=== PATIENT | female | born 1980 | race Caucasian/White ===

== ENCOUNTER 2020-10-25 07:03 | Outpatient (CLI) | payer OTHER, SELFPAY ==
--- NOTE | 2020-10-25 07:30 | XR_ITS ---
WS: [id number] ABDOMEN: SUPINE FILM HISTORY: URETERAL STONE COMPARISON: 06/09/2019 Normal bowel gas pattern. Normal osseous structures. Numerous calcifications are present in the true pelvis. No change in appearance of these calcifications which could be phleboliths. Distal ureteral c alcifications may appear similar. Right kidney: No renal or ureteral stone identified. Left kidney: No renal or ureteral stone identified. XR/XR KUB [id number] IMPRESSION: 1. No renal calcifications. 2. Numerous calcifications in the pelvis bilaterally are probably phleboliths. Distal ureteral calcifications may appear similar.
== END 2020-10-25 07:04 | disposition home or self-care (01) ==
PROVIDERS: PCP Family Medicine; Visit Provider Urology
DX: N20.1 Calculus of ureter (principal)
CPT/HCPCS: 74018; 81003

== ENCOUNTER 2022-01-03 07:12 | Outpatient (CLI) | payer OTHER, SELFPAY ==
--- NOTE | 2022-01-03 07:15 | XRR_ITS ---
PROCEDURE INFORMATION: Exam: XR Abdomen Exam date and time: 01/03/2022 7:14 AM Age: 41 years old Clinical indication: Condition or disease; Kidney or ureter condition; Calculus (stone) in ureter; Patient HX: Follow up; Additional info: Urolithiasis, kub TECHNIQUE: Imaging protocol: XR of the abdomen. Views: Frontal supine view of the abdomen. 1 View. COMPARISON: CR XR KUB [id number] 10/25/2020 7:16 AM FINDINGS: Gastrointestinal tract: Normal. No bowel dilation. Vasculature: Probable calcified phleboliths over the pelvis, similar to prior exam. 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 XR/XR KUB [id number] IMPRESSION: No acute findings or findings of urinary calculi.
== END 2022-01-03 07:13 | disposition home or self-care (01) ==
LOC: RAD 07:13
PROVIDERS: PCP Family Medicine; Visit Provider Urology
DX: N20.9 Urinary calculus, unspecified (principal); M16.0 Bilateral primary osteoarthritis of hip
CPT/HCPCS: 74018; 81003

== ENCOUNTER 2022-07-02 07:22 | Outpatient (CLI) | payer OTHER, SELFPAY ==
--- NOTE | 2022-07-02 07:37 | XR_ITS ---
WS: [id number] Exam: XR KUB [id number] Date/Time of Exam: 07/02/2022 7:37 AM Reason For Exam: Urolithiasis Comparison 01/03/2022. No sign of bowel obstruction or free air. No sign of organ enlargement. Bony structures are intact. N onspecific pelvic calcifications are noted. XR/XR KUB [id number] IMPRESSION: 1. No acute abdominal process.
== END 2022-07-02 07:23 | disposition home or self-care (01) ==
LOC: RAD 07:24
PROVIDERS: PCP Family Medicine; Visit Provider Urology
DX: N20.9 Urinary calculus, unspecified (principal)
CPT/HCPCS: 74018; 81003

== ENCOUNTER 2024-08-24 02:50 | Emergency (ER) | payer OTHER, SELFPAY ==
[2024-08-24] VITALS (51 sets, daily range): BP systolic 116–168; BP diastolic 76–114; PULSE 57–87; RESP 15–17; TEMP 36.7; O2SAT 93–99; BMI 32.3
[2024-08-24 03:24] LABS: Bilirubin Urine Negative (Negative); Blood Urine 2+ (Negative); Glucose Urine UA Negative (Normal); Ketones Urine Negative (Negative); Leukocyte Esterase Urine Negative (Negative); Nitrate Urine Negative (Negative); Protein Urine Negative (Negative); Specific Gravity, Urine 1.013 (1.005-1.030); Urine Appearance Clear (CLEAR); Urine Color Yellow (Yellow); pH Urine 6.5 (5-7)
[2024-08-24 03:29] LABS: Bacteria Urine None Seen /hpf; Hyaline Casts Urine 0-4 /lpf; RBC Urine 0-2 /hpf (0-2); Squamous Epithelial Cell Urine 0-5 /hpf (0-5); WBC Urine 0-5 /hpf (0-5)
[2024-08-24 03:31] LABS: Basophils # 0.1 10^3/uL (0.0-0.1); Basophils % 1.2 %; Eosinophils # 0.3 10^3/uL (0.0-0.8); Eosinophils % 4.2 %; Lymphocytes # 2.2 10^3/uL (0.8-4.8); Lymphocytes % 33.7 %; Mean Corpuscular HGB Conc 33.7 g/dL (30-55); Mean Corpuscular Hemoglobin 27.7 pg (27-33); Mean Corpuscular Volume 82.2 fl (85-98); Mean Platelet Volume 10.3 fL (7.4-10.4); Monocytes # 0.7 10^3/uL (0.2-0.9); Monocytes % 10.7 %; Neutrophils % 49.9 %; Nucleated Red Blood Cells % 0 %; Platelet Count 299 10^3/cmm (157-399); Red Blood Count 4.99 10^6/uL (3.85-5.65); Red Cell Distribution Width 14.1 % (12.1-15.1); White Blood Count 6.43 10^3/uL (3.29-11.43)
--- NOTE | 2024-08-24 03:41 | CTR_ITS ---
PROCEDURE INFORMATION: Exam: CT Abdomen And Pelvis With Contrast Exam date and time: 08/24/2024 4:01 AM Age: 43 years old Clinical indication: Nausea and vomiting; Additional info: Abdominal pain TECHNIQUE: Imaging protocol: Computed tomography of the abdomen and pelvis with contrast. Radiation optimization: All CT scans at this facility use at least one of these dose optimization techniques: automated exposure control; mA and/or kV adjustment per patient size (includes targeted exams where dose is matched to clinical indication); or iterative reconstruction. Contrast material: OMNI 350; Contrast volume: 100 ml; Contrast route: INTRAVENOUS (IV); COMPARISON: CT kidney stone 05/27/2019 11:41 AM RADIATION DOSE METRICS: Total DLP (mGy-cm): 834.83 FINDINGS: Slightly delayed right renal parenchymal enhancement as compared to the left. There is minimal fullness of right renal collecting system and ureter secondary to a 2-3 mm right ureteral stone immediately proximal to the right UVJ. No acute abnormality of the liver, spleen, pancreas, adrenal glands, or left kidney is identified. There is a nonobstructing 3-4 mm stone in the left kidney towards the upper pole. Probable tiny left renal cyst measuring 5 mm, too small to characterize with certainty. Abdominal aorta has normal caliber. SMV, splenic vein, and portal vein are patent. No evidence of acute appendicitis or acute adnexal pathology. 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 No acute osseous abnormality identified. CT/CT abdomen pelvis w con* [id number] IMPRESSION: 1. There is a 2-3 mm stone just proximal to the right UVJ, producing very subtle right hydroureteronephrosis. 2. There is a nonobstructing 3-4 mm stone towards the upper pole of the left kidney. Other incidental/nonacute findings as reported above. COMMENTS: Consistent with the [employer]'s Incidental Findings Committee white paper (J Am Mayito Radiol 2018): Any incidental renal lesion less than 1 cm or classified as too small to characterize, or any incidental cystic renal lesion characterized as simple-appearing, is likely benign. No follow-up imaging is recommended for these lesions per consensus recommendations based on imaging criteria.
--- NOTE | 2024-08-24 03:45 | W.ED.ABDPA2 ---
Documented by User: Cata Alejandro MD 08/24/24 03:50 HPI - Abdominal Pain General: Chief Complaint: Abdominal Pain Stated Complaint: Rt ABD Pain Time Seen by Provider: 08/24/24 02:54 History of Present Illness: 43-year-old woman who presents emergency room with right lower lateral abdominal pain. She describes a sharp pain internally. No nausea or vomiting. She has had kidney stones in the past and says this feels different. She said it woke her up tonight a couple of hours ago. No dysuria. No fever. No chest pain. No shortness of breath. Related Data Date of Last Menstrual Period: 08/24/24 Home Medications Medication Instructions Recorded Confirmed Thrive For Women 1 patch transdermal DAILY 08/24/24 08/24/24 Previous Rx's Medication Instructions Recorded hydrocodone 5 mg-acetaminophen 325 1 tab PO Q6H PRN pain #25 tabs 08/24/24 mg tablet promethazine 25 mg tablet 25 mg PO Q6H PRN nausea and 08/24/24 vomiting #20 tabs tamsulosin 0.4 mg capsule 0.4 mg PO DAILY #20 caps 08/24/24 Allergies Allergy/AdvReac Type Severity Reaction Status Date / Time No Known Allergies Allergy Verified 08/24/24 03:12 Review of Systems Narrative: Constitutional symptoms: Negative except as documented in HPI. Skin symptoms: Negative except as documented in HPI. Eye symptoms: Negative except as documented in HPI. ENMT symptoms: Negative except as documented in HPI. Respiratory symptoms: Negative except as documented in HPI. Cardiovascular symptoms: Negative except as documented in HPI. Gastrointestinal symptoms: Negative except as documented in HPI. Genitourinary symptoms: Negative except as documented in HPI. Musculoskeletal symptoms: Negative except as documented in HPI. Neurologic symptoms: Negative except as documented in HPI. Psychiatric symptoms: Negative except as documented in HPI. Endocrine symptoms: Negative except as documented in HPI. PFSH ED PFSH: Medical History Ureteral calculus, left Urolithiasis Family History Grandfather Cancer [employer] SALES [employer]OR,SKIN CANCER Social History Smoking and tobacco/nicotine status: never used tobacco/nicotine Alcohol intake: never Substance/Drug Use: never Marital status: Current occupational status: employed Female Reproductive History: Date of last menstrual period: 08/24/24 Physical Exam Narrative: EXAM NARRATIVE: General: Alert, no acute distress. Skin: Warm, dry. Head: Normocephalic, atraumatic. Neck: Supple, trachea midline. Eye: Extraocular movements are intact. Ears, nose, mouth and throat: mucosa moist. Cardiovascular: Regular, Normal peripheral perfusion. Respiratory: Lungs are clear to auscultation, respirations are non-labored, breath sounds are equal, Symmetrical chest wall expansion. Gastrointestinal: Soft, right lower quadrant abdominal, Non distended Musculoskeletal: Normal ROM, no deformity. Neurological: Alert and oriented, No focal neurological deficit observed. Psychiatric: Cooperative, appropriate mood & affect. Course Vital Signs: Vital signs: Vital Signs Temperature 98.1 F 08/24/24 02:53 Pulse Rate 76 08/24/24 08:05 Respiratory Rate 17 08/24/24 04:49 Blood Pressure 120/81 08/24/24 08:05 Pulse Oximetry 99 08/24/24 08:05 Oxygen Delivery Me thod Room Air 08/24/24 04:30 MDM - Abdominal Pain Medical Decision Making Medical decision making: Differential diagnosis for this patient with right lower quadrant abdominal pain including but not limited to and based on the above HPI, review of systems and physical exam: Ureterolithiasis. Urinary tract infection. Appendicitis. colitis. small bowel obstruction. Crohn's flare. Pancreatitis. Cholelithiasis or cholecystitis. Hepatitis. Diverticulitis. Constipation. ovarian cyst. ovarian torsion Workup: Orders were placed to evaluate differential diagnosis based on the above differential, HPI and exam: Lab Review: Laboratory results were reviewed and interpreted by myself the emergency room physician. I reviewed the patient's medical record Reexamination: Lab Data 08/24/24 03:20 08/24/24 03:20 Labs/Radiology: Radiology Impressions Abdomen/Pelvis CT 08/24/24 03:41 IMPRESSION: 1. There is a 2-3 mm stone just proximal to the right UVJ, producing very subtle right hydroureteronephrosis. 2. There is a nonobstructing 3-4 mm stone towards the upper pole of the left kidney. Other incidental/nonacute findings as reported above. COMMENTS: Consistent with the [employer]'s Incidental Findings Committee white paper (J Am Mayito Radiol 2018): Any incidental renal lesion less than 1 cm or classified as too small to characterize, or any incidental cystic renal lesion characterized as simple-appearing, is likely benign. No follow-up imaging is recommended for these lesions per consensus recommendations based on imaging criteria. Laboratory Results WBC 6.43 10^3/uL (3.29-11.43) 08/24/24 03:20 RBC 4.99 10^6/uL (3.85-5.65) 08/24/24 03:20 Hgb 13.80 g/dL (11.27-16.99) 08/24/24 03:20 Hct 41.0 % (36-47) 08/24/24 03:20 MCV 82.2 fl (85-98) L 08/24/24 03:20 MCH 27.7 pg (27-33) 08/24/24 03:20 MCHC 33.7 g/dL (30-55) 08/24/24 03:20 RDW 14.1 % (12.1-15.1) 08/24/24 03:20 Plt Count 299 10^3/cmm (157-399) 08/24/24 03:20 MPV 10.3 fL (7.4-10.4) 08/24/24 03:20 Neut % (Auto) 49.9 % 08/24/24 03:20 Lymph % (Auto) 33.7 % 08/24/24 03:20 [place] % (Auto) 10.7 % 08/24/24 03:20 Eos % (Auto) 4.2 % 08/24/24 03:20 Baso % (Auto) 1.2 % 08/24/24 03:20 Neut # (Auto) 3.20 10^3/uL (1.8-7.7) 08/24/24 03:20 Lymph # (Auto) 2.2 10^3/uL (0.8-4.8) 08/24/24 03:20 [place] # (Auto) 0.7 10^3/uL (0.2-0.9) 08/24/24 03:20 Eos # (Auto) 0.3 10^3/uL (0.0-0.8) 08/24/24 03:20 Baso # (Auto) 0.1 10^3/uL (0.0-0.1) 08/24/24 03:20 Nucleated RBC % (auto) 0 % 08/24/24 03:20 Nucleated RBCs # 0.0 /100WBC 08/24/24 03:20 Sodium 141 mmol/L (136-145) 08/24/24 03:20 Potassium 3.0 mmol/L (3.5-5.1) L 08/24/24 03:20 Chloride 106 mmol/L (98-107) 08/24/24 03:20 Carbon Dioxide 22 mmol/L (22-29) 08/24/24 03:20 Anion Gap 16.0 (5-19) 08/24/24 03:20 BUN 11 mg/dL (6-20) 08/24/24 03:20 Creatinine 0.8 mg/dL (0.5-0.9) 08/24/24 03:20 GFR Calculation 78.3 mL/min (90-130) L 08/24/24 03:20 Glucose 125 mg/dL (65-115) H 08/24/24 03:20 Calculated Osmolality 293 mOsm/kg (285-295) 08/24/24 03:20 Calcium 8.7 mg/dL (8.5-10.5) 08/24/24 03:20 Total Bilirubin 0.5 mg/dL (0.15-1.2) 08/24/24 03:20 AST 14 U/L (0-32) 08/24/24 03:20 ALT 15 U/L (0-33) 08/24/24 03:20 Alkaline Phosphatase 63 U/L (35-105) 08/24/24 03:20 C-Reactive Protein 3.6 mg/L (0.0-4.9) 08/24/24 03:20 Total Protein 6.8 g/dL (6.6-8.7) 08/24/24 03:20 Albumin 4.1 g/dL (3.5-5.2) 08/24/24 03:20 Globulin 2.7 g/dL (1.3-4.6) 08/24/24 03:20 Urine Color Yellow (Yellow) 08/24/24 02:58 Urine Appearance Clear (CLEAR) 08/24/24 02:58 Urine pH 6.5 (5-7) 08/24/24 02:58 Ur Specific [place] 1.013 (1.005-1.030) 08/24/24 02:58 Urine Protein Negative (Negative) 08/24/24 02:58 Urine Glucose (UA) Negative (Normal) 08/24/24 02:58 Urine Ketones Negative (Negative) 08/24/24 02:58 Urine Blood 2+ (Negative) A 08/24/24 02:58 Urine Nitrate Negative (Negative) 08/24/24 02:58 Urine Bilirubin Negative (Negative) 08/24/24 02:58 Urine Urobilinogen 1.0 mg/dL (Negative) 08/24/24 02:58 Ur Leukocyte Esterase Negative (Negative) 08/24/24 02:58 Urine RBC 0-2 /hpf (0-2) 08/24/24 02:58 Urine WBC 0-5 /hpf (0-5) 08/24/24 02:58 Ur Squamous Epith Cells 0-5 /hpf (0-5) 08/24/24 02:58 Amorphous Sediment Not Reportable 08/24/24 02:58 Urine Bacteria None seen /hpf (NONE) 08/24/24 02:58 Hyaline Casts 0-4 /lpf H 08/24/24 02:58 Discharge Plan Discharge Patient Disposition: Home Clinical Impression: Nephrolithiasis Condition: Stable Prescriptions: New hydrocodone-acetaminophen 5-325 mg tablet 1 tab PO Q6H PRN (Reason: pain) Qty: 25 0RF promethazine 25 mg tablet 25 mg PO Q6H PRN (Reason: nausea and vomiting) Qty: 20 0RF tamsulosin 0.4 mg capsule 0.4 mg PO DAILY Qty: 20 0RF No Action [facility] patch 1 patch transdermal DAILY Discharge Orders: Discharge ED (Routine); Ordered 08/24/24 Ordered By: Hector Eisenberg Referrals: Georgi Chung MD [Primary Care Provider] - Discharge Diet: Usual diet Discharge Activity: Resume usual activity Patient Instructions: Kidney Stones (ED), How to Strain Your Urine (ED), Opioid Safety, Pain Management Activity Restrictions/Additional Instructions: Thank you for choosing [facility] for your healthcare needs today. It is very important that you follow up as instructed or that you return to the Emergency Department should you have concerns or if your condition changes or worsens in any way. You were seen in the emergency room was complaints of abdominal pain. Workup showed that you have a kidney stone that is about to pass is 2 to 3 mm. You are given pain medications nausea medicines as a medicine that does help kidney stones passed a little bit quicker. Recommend that you strain your urine. confectionery laboratory manager will make arrangements for you to follow-up with the urologist. Sign Out Sign Out Data: Patient Sign Out occurred on 08/24/24 at 06:41. Patient's care was discussed, and care was transferred from Cata Alejandro MD to Hector Eisenberg DO. Coding Level of Care Code ED Radio Television Announcer for Chg Fwd Documented by User: Hector Eisenberg DO 08/24/24 09:01 HPI - Abdominal Pain General: Chief Complaint: Abdominal Pain Stated Complaint: Rt ABD Pain Time Seen by Provider: 08/24/24 02:54 Related Data Home Medications Medication Instructions Recorded Confirmed [facility] Women 1 patch transdermal DAILY 08/24/24 08/24/24 Previous Rx's Medication Instructions Recorded hydrocodone 5 mg-acetaminophen 325 1 tab PO Q6H PRN pain #25 tabs 08/24/24 mg tablet promethazine 25 mg tablet 25 mg PO Q6H PRN nausea and 08/24/24 vomiting #20 tabs tamsulosin 0.4 mg capsule 0.4 mg PO DAILY #20 caps 08/24/24 Allergies Allergy/AdvReac Type Severity Reaction Status Date / Time No Known Allergies Allergy Verified 08/24/24 03:12 [facility] ED PFSH: Medical History Ureteral calculus, left Urolithiasis Family History Grandfather Cancer [employer] SALES [employer]OR,SKIN CANCER Social History Smoking and tobacco/nicotine status: never used tobacco/nicotine Alcohol intake: never Substance/Drug Use: never Marital status: Current occupational status: employed Course Vital Signs: Vital signs: Vital Signs Temperature 98.1 F 08/24/24 02:53 Pulse Rate 76 08/24/24 08:05 Respiratory Rate 17 08/24/24 04:49 Blood Pressure 120/81 08/24/24 08:05 Pulse Oximetry 99 08/24/24 08:05 Oxygen Delivery Me thod Room Air 08/24/24 04:30 MDM - Abdominal Pain Medical Decision Making Medical decision making: Differential diagnosis for this patient with right lower quadrant abdominal pain including but not limited to and based on the above HPI, review of systems and physical exam: Ureterolithiasis. Urinary tract infection. Appendicitis. colitis. small bowel obstruction. Crohn's flare. Pancreatitis. Cholelithiasis or cholecystitis. Hepatitis. Diverticulitis. Constipation. ovarian cyst. ovarian torsion Workup: Orders were placed to evaluate differential diagnosis based on the above differential, HPI and exam: Lab Review: Laboratory results were reviewed and interpreted by myself the emergency room physician. I reviewed the patient's medical record Reexamination: Care assumed at change of shift. Patient sitting comfortably she does not mention her pain is starting to make her more uncomfortable. She is given another [address] shows 2 mm stone at the UVJ. Will discharge patient home strain urine hydrocodone promethazine to tamsulosin 1. Referral to urology. Return if pain is uncontrolled Medical Records I reviewed the patient's medical records. Lab Data I reviewed the patient's lab results. 08/24/24 03:20 08/24/24 03:20 Labs/Radiology: Radiology Impressions Abdomen/Pelvis CT 08/24/24 03:41 IMPRESSION: 1. There is a 2-3 mm stone just proximal to the right UVJ, producing very subtle right hydroureteronephrosis. 2. There is a nonobstructing 3-4 mm stone towards the upper pole of the left kidney. Other incidental/nonacute findings as reported above. COMMENTS: Consistent with the [employer]'s Incidental Findings Committee white paper (J Am Mayito Radiol 2018): Any incidental renal lesion less than 1 cm or classified as too small to characterize, or any incidental cystic renal lesion characterized as simple-appearing, is likely benign. No follow-up imaging is recommended for these lesions per consensus recommendations based on imaging criteria. Laboratory Results WBC 6.43 10^3/uL (3.29-11.43) 08/24/24 03:20 RBC 4.99 10^6/uL (3.85-5.65) 08/24/24 03:20 Hgb 13.80 g/dL (11.27-16.99) 08/24/24 03:20 Hct 41.0 % (36-47) 08/24/24 03:20 MCV 82.2 fl (85-98) L 08/24/24 03:20 MCH 27.7 pg (27-33) 08/24/24 03:20 MCHC 33.7 g/dL (30-55) 08/24/24 03:20 RDW 14.1 % (12.1-15.1) 08/24/24 03:20 Plt Count 299 10^3/cmm (157-399) 08/24/24 03:20 MPV 10.3 fL (7.4-10.4) 08/24/24 03:20 Neut % (Auto) 49.9 % 08/24/24 03:20 Lymph % (Auto) 33.7 % 08/24/24 03:20 [place] % (Auto) 10.7 % 08/24/24 03:20 Eos % (Auto) 4.2 % 08/24/24 03:20 Baso % (Auto) 1.2 % 08/24/24 03:20 Neut # (Auto) 3.20 10^3/uL (1.8-7.7) 08/24/24 03:20 Lymph # (Auto) 2.2 10^3/uL (0.8-4.8) 08/24/24 03:20 [place] # (Auto) 0.7 10^3/uL (0.2-0.9) 08/24/24 03:20 Eos # (Auto) 0.3 10^3/uL (0.0-0.8) 08/24/24 03:20 Baso # (Auto) 0.1 10^3/uL (0.0-0.1) 08/24/24 03:20 Nucleated RBC % (auto) 0 % 08/24/24 03:20 Nucleated RBCs # 0.0 /100WBC 08/24/24 03:20 Sodium 141 mmol/L (136-145) 08/24/24 03:20 Potassium 3.0 mmol/L (3.5-5.1) L 08/24/24 03:20 Chloride 106 mmol/L (98-107) 08/24/24 03:20 Carbon Dioxide 22 mmol/L (22-29) 08/24/24 03:20 Anion Gap 16.0 (5-19) 08/24/24 03:20 BUN 11 mg/dL (6-20) 08/24/24 03:20 Creatinine 0.8 mg/dL (0.5-0.9) 08/24/24 03:20 GFR Calculation 78.3 mL/min (90-130) L 08/24/24 03:20 Glucose 125 mg/dL (65-115) H 08/24/24 03:20 Calculated Osmolality 293 mOsm/kg (285-295) 08/24/24 03:20 Calcium 8.7 mg/dL (8.5-10.5) 08/24/24 03:20 Total Bilirubin 0.5 mg/dL (0.15-1.2) 08/24/24 03:20 AST 14 U/L (0-32) 08/24/24 03:20 ALT 15 U/L (0-33) 08/24/24 03:20 Alkaline Phosphatase 63 U/L (35-105) 08/24/24 03:20 C-Reactive Protein 3.6 mg/L (0.0-4.9) 08/24/24 03:20 Total Protein 6.8 g/dL (6.6-8.7) 08/24/24 03:20 Albumin 4.1 g/dL (3.5-5.2) 08/24/24 03:20 Globulin 2.7 g/dL (1.3-4.6) 08/24/24 03:20 Urine Color Yellow (Yellow) 08/24/24 02:58 Urine Appearance Clear (CLEAR) 08/24/24 02:58 Urine pH 6.5 (5-7) 08/24/24 02:58 Ur Specific [place] 1.013 (1.005-1.030) 08/24/24 02:58 Urine Protein Negative (Negative) 08/24/24 02:58 Urine Glucose (UA) Negative (Normal) 08/24/24 02:58 Urine Ketones Negative (Negative) 08/24/24 02:58 Urine Blood 2+ (Negative) A 08/24/24 02:58 Urine Nitrate Negative (Negative) 08/24/24 02:58 Urine Bilirubin Negative (Negative) 08/24/24 02:58 Urine Urobilinogen 1.0 mg/dL (Negative) 08/24/24 02:58 Ur Leukocyte Esterase Negative (Negative) 08/24/24 02:58 Urine RBC 0-2 /hpf (0-2) 08/24/24 02:58 Urine WBC 0-5 /hpf (0-5) 08/24/24 02:58 Ur Squamous Epith Cells 0-5 /hpf (0-5) 08/24/24 02:58 Amorphous Sediment Not Reportable 08/24/24 02:58 Urine Bacteria None seen /hpf (NONE) 08/24/24 02:58 Hyaline Casts 0-4 /lpf H 08/24/24 02:58 All radiology interpretation(s) finalized by discharge Discharge Plan Discharge Patient Disposition: Home Clinical Impression: Nephrolithiasis Condition: Stable Prescriptions: New hydrocodone-acetaminophen 5-325 mg tablet 1 tab PO Q6H PRN (Reason: pain) Qty: 25 0RF promethazine 25 mg tablet 25 mg PO Q6H PRN (Reason: nausea and vomiting) Qty: 20 0RF tamsulosin 0.4 mg capsule 0.4 mg PO DAILY Qty: 20 0RF No Action [facility] patch 1 patch transdermal DAILY Discharge Orders: Discharge ED (Routine); Ordered 08/24/24 Ordered By: Hector Eisenberg Referrals: Georgi Chung MD [Primary Care Provider] - Discharge Diet: Usual diet Discharge Activity: Resume usual activity Patient Instructions: Kidney Stones (ED), How to Strain Your Urine (ED), Opioid Safety, Pain Management Activity Restrictions/Additional Instructions: Thank you for choosing [facility] for your healthcare needs today. It is very important that you follow up as instructed or that you return to the Emergency Department should you have concerns or if your condition changes or worsens in any way. You were seen in the emergency room was complaints of abdominal pain. Workup showed that you have a kidney stone that is about to pass is 2 to 3 mm. You are given pain medications nausea medicines as a medicine that does help kidney stones passed a little bit quicker. Recommend that you strain your urine. confectionery laboratory manager will make arrangements for you to follow-up with the urologist. Sign Out Sign Out Data: Patient Sign Out occurred on 08/24/24 at 06:41. Patient's care was discussed, and care was transferred from Cata Alejandro MD to Hector Eisenberg DO. Coding Level of Care Code ED Radio Television Announcer for Migue Cardenas
[2024-08-24 03:51] LABS: Alanine Aminotransferase 15 U/L (0-33); Albumin Level 4.1 g/dL (3.5-5.2); Alkaline Phosphatase 63 U/L (35-105); Aspartate Amino Transferase 14 U/L (0-32); Blood Urea Nitrogen 11 mg/dL (6-20); C Reactive Protein 3.6 mg/L (0.0-4.9); Calcium 8.7 mg/dL (8.5-10.5); Carbon Dioxide 22 mmol/L (22-29); Chloride 106 mmol/L (98-107); Creatinine Clr Calc Pharmacy 102.8724; Globulin 2.7 g/dL (1.3-4.6); Glomerular Filtration Rate 78.3 mL/min (90-130); Glucose 125 mg/dL (65-115); Osmolality Calculated 293 mOsm/kg (285-295); Sodium 141 mmol/L (136-145); Total Bilirubin 0.5 mg/dL (0.15-1.2); Total Protein 6.8 g/dL (6.6-8.7)
[2024-08-24] MEDS: ketorolac 30 mg/mL INJ IVP (03:54)
[2024-08-24] MEDS: iohexol 350 mg/mL 500 mL Btl (per mL) IV (04:04)
[2024-08-24] MEDS: ondansetron 2 mg/ML SDV 2 mL 8 MG IVP (04:28)
[2024-08-24] MEDS: HYDROmorphone 1 mg/mL INJ 1 mL IVP (04:49)
[2024-08-24] MEDS: morphine 4 mg/mL SDV 1 mL IVP (09:06)
== END 2024-08-24 09:15 | disposition home or self-care (01) ==
PROVIDERS: Emergency Medicine; Emergency Provider Family Medicine; PCP Family Medicine
DX: N20.0 Calculus of kidney (principal); Z87.442 Personal history of urinary calculi
CPT/HCPCS: 74177; 80053; 81001; 85025; 86140; 96374; 96375; 99285; J1171; J1885; J2270; J2405